=== PATIENT | male | born 1965 | race Caucasian/White ===

== ENCOUNTER 2017-08-07 06:19 | Day surgery (SDC) | payer BC ==
[2017-08-07 07:21] VITALS: BP 138/80; BMI 29.6
[2017-08-07 07:22] LABS: BASOPHILS 1.8 % (0-2); EOSINOPHILS 3.5 % (0-7); HEMATOCRIT 40.4 % (42.0-54.0); HEMOGLOBIN 14.1 g/dL (13.5-17.5); IMMATURE GRANULOCYTES 0.2 % (0-5); LYMPHOCYTES 34.5 % (15-50); MCH 29.1 pg (26.0-34.0); MCHC 34.9 g/dL (31.0-37.0); MCV 83.3 fL (80.0-100.0); MEAN PLATELET VOLUME 9.6 fL (7.4-10.4); MONOCYTES 6.9 % (2-11); NEUTROPHILS 53.1 % (40-80); PLATELET COUNT 215 10x3/uL (130-400); RBC 4.85 10x6/uL (4.20-6.10); RDW 12.9 % (11.5-14.5); WBC 5.5 10x3/uL (4.8-10.8)
[2017-08-07] MEDS ORDERED: DOXEPIN HCL10 MG PO (07:26)
[2017-08-07] MEDS ORDERED: NORVASC10 MG PO (07:26)
[2017-08-07] MEDS ORDERED: ZESTORETIC 20-1 EACH PO (07:27)
[2017-08-07] MEDS ORDERED: METOPROLOL TART50 MG PO (07:27)
[2017-08-07] MEDS ORDERED: LIPITOR80 MG PO (07:28)
[2017-08-07] MEDS ORDERED: TOUJEO SOL300 UNIT/1 (07:28)
[2017-08-07] MEDS ORDERED: GLUCOPHAGE1000 MG PO (07:29)
[2017-08-07] MEDS ORDERED: CARAFATE1 G/10 ML (07:29)
[2017-08-07] MEDS ORDERED: CARAFATE1 G/10 ML PO (07:30)
[2017-08-07 07:52] LABS: CALC OSMOLALITY 285 mosm/kg (275-300); CALCIUM 8.7 mg/dL (8.5-10.1); CARBON DIOXIDE 28.8 mmol/L (21.0-32.0); CHLORIDE - SERUM 106 mmol/L (98-107); CREATININE - SERUM 0.9 mg/dL (0.6-1.3); GLUCOSE 189 mg/dL (74-106); POTASSIUM - SERUM 3.8 mmol/L (3.5-5.1); SODIUM 142 mmol/L (136-145); UREA NITROGEN 8 mg/dL (7-18); eGFR NON AFRICAN AMERICAN > 90 mL/min (90-120)
[2017-08-07] MEDS ORDERED: LINZESS290 MCG PO (09:28)
--- NOTE | 2017-08-07 10:14 | NUR ---
IV D/C'D CATH INTACT. PT DRESSED. D/C INSTRUCTIONS EXPLAINED TO PT AND FAMILY MEMBER. VOICED UNDERSTANDING. COPIES OF ALL GIVEN, WELL WRITTEN RX FOR LINZESS PER DR. MOSCOSO. D/C'D HOME VIA W/C TO PRIVATE CAR.
--- NOTE | 2017-08-16 14:40 | OP ---
PATIENT NAME: MARIAM RODGERS MEDICAL RECORD: [id number] :61 [facility]: SURGEON: KATINA MOSCOSO DO DATE OF OPERATION: 08/07/2017 PROCEDURE: Colonoscopy with polypectomy. INDICATION FOR PROCEDURE: Acute constipation. SCOPE: Olympus video pediatric colonoscope. MEDICATIONS: Propofol 700 mg IV and Versed 2 mg IV per anesthesia. WITHDRAWAL TIME: 25 minutes. ESTIMATED BLOOD LOSS: Minimal. COMPLICATIONS: None. FINDINGS: Informed consent was given. The patient was made comfortable with the above medications. After reaching an adequate level of sedation by slow IV push, the patient was placed on his left side. A digital rectal examination was performed and was normal. The endoscope was then advanced under direct visualization through the rectum to the terminal ileum. The scope was slowly withdrawn and mucosa was carefully examined. Prep quality was poor. An extensive amount of time was spent irrigating and suctioning for better visualization of the mucosa. That being said, all regions of the colon were visualized. There were 3 polyps seen on today's examination. The first was located in the sigmoid colon. It was a pedunculated polyp, which appeared to be a simple adenomatous polyp versus a juvenile polyp. A snare was placed around the distal third of the polyp and removed. In the rectum, there were 2 separate polyps. One was a benign-appearing sessile polyp measuring approximately 6 mm in diameter, which was removed with a hot snare. The second was a flat polyp, measuring approximately 6 mm in diameter. It was removed using hot snare. Retroflexion was performed in the rectum. The rectal wall appeared normal. The scope was withdrawn from the patient. The patient tolerated the procedure well and there were no complications. IMPRESSIONS: 1. Three polyps as described above, removed using hot snare. All polyps were retrieved. 2. Chronic idiopathic constipation versus irritable bowel syndrome, which is constipation predominant. PLAN AND RECOMMENDATIONS: 1. Discharge home when recovery parameters are met. 2. Followup biopsy specimen results. 3. Trial of Linzess 290 mcg daily. 4. Followup in GI clinic in one month. 5. Recall colonoscopy in 2 years for personal history of polyps and inadequate prep. TRANSINT:[id number] Voice Confirmation ID: [id number] DOCUMENT ID: [id number] OPERATIVE REPORT [id number] MARIAM RODGERS KATINA MOSCOSO DO at 1440 CC: [id number] DICTATION DATE: 08/07/1705 VISUAL MERCHANDISING SPECIALIST: 08/07/17 115[address] [facility] [place] 08/07/17 [facility] [address] [place] [address]
== END 2017-08-07 10:20 | disposition home or self-care (01) ==
LOC: D.OPS 06:19
PROVIDERS: Anesthesiology
DX: K59.00 Constipation, unspecified (principal); I10 Essential (primary) hypertension; E11.9 Type 2 diabetes mellitus without complications; K63.5 Polyp of colon; Z01.812 Encounter for preprocedural laboratory examination

== ENCOUNTER → 2017-08-22 07:55 | Outpatient (CLI) | payer BC ==
[2017-08-07 07:21] VITALS: BMI 29.6
[~2017-08-22 07:55] MED LIST: CARAFATE1 G/10 ML; CARAFATE1 G/10 ML PO; DOXEPIN HCL10 MG PO; GLUCOPHAGE1000 MG PO; LINZESS290 MCG PO; LIPITOR80 MG PO; METOPROLOL TART50 MG PO; NORVASC10 MG PO; TOUJEO SOL300 UNIT/1; ZESTORETIC 20-1 EACH PO
== END | disposition home or self-care (01) ==
LOC: D.RAD 07:55
DX: R10.12 Left upper quadrant pain (principal); K59.09 Other constipation